=== PATIENT | female | born 1980 ===

== ENCOUNTER 2017-10-31 11:38 | Emergency (ER) | payer OTHER ==
[2017-10-31 11:50] VITALS: BMI 27.3
[2017-10-31 11:53] VITALS: RESP 18
[2017-10-31] MEDS ORDERED: Sodium Chloride 0.9% 1,000 ML IV ONE (12:24)
--- NOTE | 2017-10-31 12:45 | C.PDOC ---
History Of Present Illness 37yo female, comes to ER for evaluation of generalized weakness and bodyaches since yesterday. Patient states yesterday, she also had associated nausea and a subjective fever. She denies any recent travels, known sick contacts, or changes in diet. Patient also denies any chest pain, shortness of breath, cough , throat pain, vomiting, diarrhea, numbness or weakness in her lower extremities. She states she is concerned due to the persistent weakness and bodyaches. 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 History/Exam Limitations: no limitations Onset/Duration Of Symptoms: Persistent Current Symptoms Are (Timing): Still Present Additional History Per: Patient Past Medical History Reviewed: Historical Data, Nursing Documentation, Vital Signs Vital Signs: Last Vital Signs Temp 98 F 10/31/17 15:43 Pulse 68 10/31/17 15:43 Resp 18 10/31/17 15:43 BP 116/78 10/31/17 15:43 Pulse Ox 100 10/31/17 15:43 - Medical History PMH: HTN Surgical History: No Surg Hx Family History: States: No Known Family Hx - Social History Hx Alcohol Use: No Hx Substance Use: No - Immunization History Hx Tetanus Toxoid Vaccination: No Hx Influenza Vaccination: No Hx Pneumococcal Vaccination: No Review Of Systems Except As Marked, All Systems Reviewed And Found Negative. Constitutional: Positive for: Fever (subjective), Weakness, Other (bodyaches) ENT: Negative for: Throat Pain Cardiovascular: Negative for: Chest Pain Respiratory: Negative for: Cough, Shortness of Breath Gastrointestinal: Positive for: Nausea. Negative for: Vomiting, Abdominal Pain Neurological: Negative for: Weakness, Numbness Physical Exam - Physical Exam Appears: Non-toxic, No Acute Distress Skin: Normal Color, Warm, Dry Head: Atraumatic, Normacephalic Eye(s): bilateral: Normal Inspection, EOMI Oral Mucosa: Moist Throat: Normal, No Erythema, No Exudate Neck: Normal ROM, Supple Chest: Symmetrical, No Tenderness Cardiovascular: Rhythm Regular Respiratory: Normal Breath Sounds, No Rales, No Rhonchi, No Wheezing Gastrointestinal/Abdominal: Normal Exam, Soft, No Tenderness, No Guarding, No Rebound Back: Normal Inspection, No CVA Tenderness, No Vertebral Tenderness, No Paraspinal Tenderness Extremity: Normal ROM, No Tenderness, No Pedal Edema, No Calf Tenderness, No Deformity, No Swelling Neurological/Psych: Oriented x3, Normal Speech, Normal Cognition, Normal Motor, Normal Sensation Gait: Steady ED Course And Treatment - Laboratory Results Result Diagrams: 10/31/17 12:45 10/31/17 12:45 O2 Sat by Pulse Oximetry: 99 (RA) Pulse Ox Interpretation: Normal - Other Rad CXR X-Ray: Read By Radiologist Interpretation: FINDINGS: LUNGS: No active pulmonary disease. PLEURA: No significant pleural effusion identified. No pneumothorax apparent. CARDIOVASCULAR: Normal. OSSEOUS STRUCTURES: No significant abnormalities. VISUALIZED UPPER ABDOMEN: Normal. OTHER FINDINGS: None. IMPRESSION: No acute cardiopulmonary disease appreciated. Reevaluation Time: 16:22 Reassessment Condition: Improved Medical Decision Making Medical Decision Making: Plan: -- Labs -- CXR -- Toradol 30mg IV -- IV Fluids -- Urinalysis Disposition Counseled Patient/Family Regarding: Studies Performed, Diagnosis, Need For Followup - Disposition Referrals: [facility] [Outside] at [facility] [Outside] Disposition: HOME/ ROUTINE Disposition Time: 16:23 Condition: IMPROVED Instructions: Muscle and Bone Pain (DC) Forms: [employer] (Tajik), Work Excuse Print Language: YORUBA - Clinical Impression Clinical Impression: Myalgia, Malaise - Scribe Statement The provider has reviewed the documentation as recorded by the Holly Muller Provider Attestation: All medical record entries made by the Holly were at my direction and personally dictated by me. I have reviewed the chart and agree that the record accurately reflects my personal performance of the history, physical exam, medical decision making, and the department course for this patient. I have also personally directed, reviewed, and agree with the discharge instructions and disposition.
[2017-10-31 12:48] LABS: BASO % 1.1 % (0.0-2.0); EOS # 0.1 K/uL (0.0-0.7); EOS % 2.4 % (0.0-4.0); HEMOGLOBIN 13.4 g/dL (11.0-16.0); LYMPH # 2.3 K/uL (1.0-4.3); LYMPH % 60.8 % (20.0-40.0); MEAN CELL VOLUME 94.7 fL (81.0-99.0); MEAN CORPUSCULAR HEMOGLOBIN 32.2 pg (27.0-31.0); MEAN PLATELET VOLUME 8.6 fL (7.2-11.7); MONO # 0.3 K/uL (0.0-0.8); MONO % 6.9 % (0.0-10.0); NEUT # 1.1 K/uL (1.8-7.0); NEUT % 28.8 % (50.0-75.0); NRBC % 0.1 % (0.0-2.0); RBC 4.16 Mil/uL (3.80-5.20); RED CELL DISTRIBUTION WIDTH 12.6 % (11.5-14.5); WHITE BLOOD COUNT 3.7 K/uL (4.8-10.8)
[2017-10-31] MEDS ORDERED: Sodium Chloride 0.9% 1,000 ML ONE (12:48)
[2017-10-31 12:58] LABS: BLOOD UREA NITROGEN 8 mg/dL (7-17); CALCIUM 8.8 mg/dl (8.6-10.4); GFR AFRICAN-AMERICAN > 60; GFR NON-AFRICAN AMERICAN > 60
--- NOTE | 2017-10-31 13:17 | RAD ---
Date of service: 10/31/2017 HISTORY: SOB COMPARISON: No prior. TECHNIQUE: Chest PA and lateral FINDINGS: LUNGS: No active pulmonary disease. PLEURA: No significant pleural effusion identified. No pneumothorax apparent. CARDIOVASCULAR: Normal. OSSEOUS STRUCTURES: No significant abnormalities. VISUALIZED UPPER ABDOMEN: Normal. OTHER FINDINGS: None. IMPRESSION: No acute cardiopulmonary disease appreciated.
--- NOTE | 2017-10-31 15:11 | CARD ---
APPROVED REPORT Date of service: 10/31/2017 EKG Measurement Heart [id number] <Conclusion> Normal sinus rhythm Normal ECG
[2017-10-31] MEDS ORDERED: Iodixanol 320 MG/ML 100 ML BOTTLE IV ONE (15:22)
[2017-10-31 15:37] LABS: SQUAMOUS EPITHIAL 14 /hpf (0-5); URINE BILIRUBIN NEGATIVE (NEGATIVE); URINE BLOOD NEGATIVE (NEGATIVE); URINE CLARITY Clear (Clear); URINE COLOR Yellow (YELLOW); URINE GLUCOSE (UA) NORMAL (Normal); URINE LEUKOCYTE ESTERASE NEG Leu/uL (Negative); URINE PROTEIN NEGATIVE (NEGATIVE); URINE UROBILINOGEN NORMAL mg/dL (0.2-1.0)
[2017-10-31 15:44] VITALS: BP 116/78; PULSE 68; TEMP 98
--- NOTE | 2017-10-31 16:03 | CT ---
Date of service: 10/31/2017 PROCEDURE: CT Chest with contrast (Pulmonary Angiogram) HISTORY: SOB r/o PE COMPARISON: None available. TECHNIQUE: Axial computed tomography images were obtained of the chest in the pulmonary arterial phase of enhancement. Coronal and sagittal reformatted images were created and reviewed. Intravenous contrast dose: 100 mL of Visipaque 320 Radiation dose: Total exam DLP = 343 mGy-cm. This CT exam was performed using one or more of the following dose reduction techniques: Automated exposure control, adjustment of the mA and/or kV according to patient size, and/or use of iterative reconstruction technique. FINDINGS: PULMONARY ARTERIES: Unremarkable. No pulmonary embolism. AORTA: No acute findings. No thoracic aortic aneurysm. LUNGS: Unremarkable. No nodule, mass or pulmonary consolidation. PLEURAL SPACES: Unremarkable. No effusion or pneumothorax. HEART: Unremarkable. No cardiomegaly. No significant pericardial effusion. LYMPH NODES: No lymphadenopathy. BONES, CHEST WALL: Unremarkable. No fracture or destructive lesion OTHER FINDINGS: Some small peripheral subsegmental bilateral pulmonary venous thrombi not excluded/possible. IMPRESSION: No pulmonary arterial emboli. Small peripheral bibasilar subsegmental pulmonary venous thrombi not excluded/possible
[2017-10-31 16:22] VITALS: O2SAT 99
== END 2017-10-31 16:34 | disposition home or self-care (01) ==
LOC: C.ER 11:38
DX: M79.1 Myalgia (principal); R53.81 Other malaise; I10 Essential (primary) hypertension
CPT/HCPCS: 71046; 71275; 80048; 81001; 85025; 85378; 93005; 96361; 96374; 99285; J1885; J7030; Q9967

== ENCOUNTER 2018-02-10 07:49 | Emergency (ER) | payer OTHER ==
[2018-02-10 07:50] VITALS: BMI 27.3
[2018-02-10] MEDS ORDERED: Sodium Chloride 0.9% 1,000 ML IV ONE (08:21)
[2018-02-10] MEDS ORDERED: Albuterol 0.083% Inhal Sol (2.5 mg/3 mL) UD INH STA (08:22)
--- NOTE | 2018-02-10 08:23 | C.PDOC ---
History Of Present Illness 37 years old female with PMHx of asthma presents to ED for complaints of bodyaches, nasal congestion,dry cough, low grade fever that began few days ago. Patient reports, " since last night developed a sever nasal congestion, hard to breath", epigastric pain associated with 2 episodes of non-bilious vomiting. Otherwise, pt denies high fever,lethargy, drooling, headache, dizziness, neck pain, chest pain, wheezing, palpitation, hematemesis, diarrhea, melena, back pain, UTI sx. Ambulate to Ed for evaluation, appears lightly anxious. Time Seen by Provider: 02/10/18 07:57 Chief Complaint (Nursing): Abdominal Pain History Per: Patient History/Exam Limitations: no limitations Onset/Duration Of Symptoms: Days Current Symptoms Are (Timing): Still Present Location Of Pain/Discomfort: Epigastric Radiation Of Pain To:: None Quality Of Discomfort: "Pain" Associated Symptoms: Fever (Low grade). denies: Chills, Nausea, Vomiting, Diarrhea Exacerbating Factors: None Alleviating Factors: None Last Bowel Movement: Today Recent travel outside of the [place]: No Abnormal Vaginal Bleeding: No Past Medical History Reviewed: Historical Data, Nursing Documentation, Vital Signs Vital Signs: Last Vital Signs Temp 98.6 F 02/10/18 07:58 Pulse 74 02/10/18 07:58 Resp 24 02/10/18 07:58 BP Pulse Ox 99 02/10/18 07:58 - Medical History PMH: HTN Family History: States: No Known Family Hx - Social History Hx Alcohol Use: No Hx Substance Use: No - Immunization History Hx Tetanus Toxoid Vaccination: No Hx Influenza Vaccination: No Hx Pneumococcal Vaccination: No Review Of Systems Constitutional: Positive for: Fever (Low grade), Malaise. Negative for: Chills ENT: Positive for: Nose Congestion Respiratory: Positive for: Cough. Negative for: Wheezing Gastrointestinal: Positive for: Abdominal Pain (Epigastric ). Negative for: Nausea, Vomiting, Diarrhea Skin: Negative for: Rash Neurological: Negative for: Weakness, Numbness Physical Exam - Physical Exam Appears: Well, Non-toxic, Other (mild anxious) Skin: Normal Color, Warm, Dry, No Rash Head: Normacephalic Eye(s): bilateral: PERRL Ear(s): Bilateral: Normal Nose: Discharge (Nasal congestion with discharge bilaterally ) Oral Mucosa: Moist, No Drooling Tongue: Normal Appearing Lips: Normal Appearing Throat: No Erythema, No Exudate, No Drooling Neck: Trachea Midline, Supple Chest: Symmetrical, No Tenderness Cardiovascular: No Murmur, No JVD Respiratory: No Decreased Breath Sounds, No Accessory Muscle Use, No Rales, No Rhonchi, No Stridor, No Wheezing Gastrointestinal/Abdominal: Soft, Tenderness (Mild Epigastric ), No Distention, No Guarding, No Rebound Back: No CVA Tenderness Extremity: Normal ROM, No Deformity, No Swelling Extremity: Bilateral: Atraumatic, Normal Color And Temperature, Normal ROM Pulses: Left Radial: Normal, Right Radial: Normal Neurological/Psych: Oriented x3, Normal Speech Gait: Steady ED Course And Treatment - Laboratory Results Result Diagrams: 02/10/18 08:50 02/10/18 08:50 Lab Interpretation: No Acute Changes Urine POC: Negative ECG: Interpreted By Me, Viewed By Me ECG Rhythm: Sinus Rhythm ECG Interpretation: Normal Interpretation Of ECG: SR@60/min, NAD, no acute T wave or ST-T Changes O2 Sat by Pulse Oximetry: 99 (RA) Pulse Ox Interpretation: Normal - Radiology CXR: Interpreted by Me, Viewed By Me CXR Interpretation: Yes: No Acute Disease - Other Rad CXR X-Ray: Viewed By Me, Read By Radiologist Interpretation: Chest x-ray two views. HISTORY: Cough. COMPARISON: 10/31/2017. FINDINGS: No focal infiltrate or effusion. Heart size within normal limits. Impression: No focal infiltrate or effusion. Progress Note: Administered Albuterol nebulizer treatment, IV fluids, Pepcid, Toradol, and Zofran. Ordered CXR, EKG, blood work, urinalysis, and Flu AB Swab. Pt was OBS in ED for 3 hours and reports moderate improvement in sx. On re- eval, pt is afebrile, hemodynamicay stable. Non-toxic, tolerate PO well in ED. PulsEOx. Neck: SUpple, (-) meningeals ign. ENT: No acute findings. Lungs: CTA B/L, BS equal B/L. CVS: (+)S1S2, reg. Abd: Benign, (-) guarding, (-) rebound, (-) localized tenderness. back: (-) CVA tenderness. Neurologicaly inatct. Blood work review and appears without acute abnormalities, no acute leuko cytosis, no evidece of dehydration. CXR- normal study. Pt has clinical findings c/w epigastric pain, N/V, r/o viral illness. Pt advised on course f ds,. ref. to F/U with PMD in 2-3 days for re-eval. return if any new chnages. Disposition Counseled Patient/Family Regarding: Studies Performed, Diagnosis, Need For Followup, Rx Given - Disposition Referrals: [facility] [Outside] Disposition: HOME/ ROUTINE Disposition Time: 09:54 Condition: STABLE Additional Instructions: Encourage fluids Take medication as need as prescribed Follow up with PMD In 2-3 days for re-evaluation. return to ED if any worsening or new changes. Prescriptions: Famotidine [Pepcid] 20 mg PO BID #10 tab Ondansetron ODT [Zofran ODT] 1 odt PO BID PRN #6 odt PRN Reason: Nausea/Vomiting Instructions: Viral Upper Respiratory Infection, Adult (DC), Nausea and Vomiting, Adult (DC) Forms: [employer] (Ghanaian) Print Language: ALBANIAN - Clinical Impression Clinical Impression: Epigastric abdominal pain, Vomiting, Nausea - PA / BENCH SCIENTIST / Resident Statement MD/DO has reviewed & agrees with the documentation as recorded. - Scribe Statement The provider has reviewed the documentation as recorded by the Holly Dill All medical record entries made by the Ericibpako were at my direction and personally dictated by me. I have reviewed the chart and agree that the record accurately reflects my personal performance of the history, physical exam, medical decision making, and the department course for this patient. I have also personally directed, reviewed, and agree with the discharge instructions and dis position.
[2018-02-10 08:53] LABS: BASO # 0.1 K/uL (0.0-0.2); BASO % 1.4 % (0.0-2.0); EOS # 0.3 K/uL (0.0-0.7); EOS % 6.5 % (0.0-4.0); HEMOGLOBIN 13.3 g/dL (11.0-16.0); LYMPH # 2.6 K/uL (1.0-4.3); LYMPH % 53.6 % (20.0-40.0); MEAN CELL VOLUME 93.7 fL (81.0-99.0); MEAN CORPUSCULAR HEMOGLOBIN 32.3 pg (27.0-31.0); MEAN CORPUSCULAR HGB CONC 34.5 g/dL (33.0-37.0); MEAN PLATELET VOLUME 9.8 fL (7.2-11.7); MONO # 0.5 K/uL (0.0-0.8); MONO % 9.9 % (0.0-10.0); NEUT # 1.4 K/uL (1.8-7.0); NEUT % 28.6 % (50.0-75.0); NRBC % 0.1 % (0.0-2.0); RBC 4.12 Mil/uL (3.80-5.20); RED CELL DISTRIBUTION WIDTH 12.5 % (11.5-14.5); WHITE BLOOD COUNT 4.9 K/uL (4.8-10.8)
[2018-02-10 08:58] LABS: SQUAMOUS EPITHIAL 1 /hpf (0-5); URINE BACTERIA RARE (<OCC); URINE BILIRUBIN NEGATIVE (NEGATIVE); URINE BLOOD 3+ (NEGATIVE); URINE CLARITY Clear (Clear); URINE COLOR Yellow (YELLOW); URINE GLUCOSE (UA) NORMAL (Normal); URINE LEUKOCYTE ESTERASE NEG Leu/uL (Negative); URINE PROTEIN NEGATIVE (NEGATIVE); URINE UROBILINOGEN NORMAL mg/dL (0.2-1.0)
[2018-02-10 09:02] LABS: HCG,QUALITATIVE URINE NEGATIVE (NEGATIVE)
[2018-02-10] MEDS ORDERED: Albuterol 0.083% Inhal Sol (2.5 mg/3 mL) UD ONE (09:04)
[2018-02-10 09:10] LABS: ALB/GLOB RATIO 1.4 (1.0-2.1); ALBUMIN 3.9 g/dL (3.5-5.0); ALT/SGPT 39 U/L (9-52); AST/SGOT 32 U/L (14-36); BLOOD UREA NITROGEN 8 mg/dL (7-17); CALCIUM 8.5 mg/dl (8.6-10.4); GFR NON-AFRICAN AMERICAN > 60
--- NOTE | 2018-02-10 10:22 | RAD ---
Chest x-ray two views HISTORY: Cough. COMPARISON: 10/31/2017 FINDINGS: No focal infiltrate or effusion. Heart size within normal limits. Impression: No focal infiltrate or effusion.
[2018-02-10 11:03] VITALS: BP 110/72; PULSE 60; RESP 18; TEMP 99.1
[2018-02-10 18:29] VITALS: O2SAT 99
--- NOTE | 2018-02-12 23:04 | CARD ---
APPROVED REPORT Date of service: 02/10/2018 EKG Measurement Heart [id number] <Conclusion> Normal sinus rhythm Low voltage QRS Nonspecific T wave abnormality Abnormal ECG
== END 2018-02-10 11:02 | disposition home or self-care (01) ==
LOC: C.ER 07:49
DX: R10.13 Epigastric pain (principal); R11.2 Nausea with vomiting, unspecified
CPT/HCPCS: 71046; 80053; 81001; 84703; 85025; 87804; 93005; 96361; 96374; 96375; 99285; J1885; J2405; J7030

== ENCOUNTER 2018-03-06 14:11 | Emergency (ER) | payer OTHER ==
[2018-03-06 14:11] VITALS: BMI 27.3
[2018-03-06 14:46] VITALS: TEMP 98.4; O2SAT 100
[2018-03-06] MEDS ORDERED: Belladonna-Phenobarbital PO STA (15:34)
--- NOTE | 2018-03-06 15:36 | C.PDOC ---
History Of Present Illness 37 y/o female presents to ED with c/o intermittent epigastric abdominal pain for 2 days associated with nausea and diarrhea. Patient states she was seen last month for same and given medication, finished course but now symptoms returned. Patient states pain is worse after eating and denies recent travel, fever, chills, blood in stool, vomiting or any other complaints at this time. Time Seen by Provider: 03/06/18 15:19 Chief Complaint (Nursing): Abdominal Pain History Per: Patient History/Exam Limitations: no limitations Onset/Duration Of Symptoms: Days Current Symptoms Are (Timing): Still Present Past Medical History Reviewed: Historical Data, Nursing Documentation, Vital Signs Vital Signs: Last Vital Signs Temp 98.4 F 03/06/18 14:43 Pulse 83 03/06/18 14:43 Resp 20 03/06/18 14:43 BP 103/65 03/06/18 14:43 Pulse Ox 100 03/06/18 14:43 - Medical History PMH: HTN Surgical History: No Surg Hx Family History: States: No Known Family Hx - Social History Hx Alcohol Use: No Hx Substance Use: No - Immunization History Hx Tetanus Toxoid Vaccination: No Hx Influenza Vaccination: No Hx Pneumococcal Vaccination: No Review Of Systems Constitutional: Negative for: Fever, Chills Gastrointestinal: Positive for: Nausea, Abdominal Pain, Diarrhea. Negative for: Vomiting Genitourinary: Negative for: Dysuria, Hematuria Skin: Negative for: Rash Physical Exam - Physical Exam Appears: Non-toxic, No Acute Distress Skin: Warm, Dry, No Rash Head: Atraumatic, Normacephalic Eye(s): bilateral: Normal Inspection, EOMI Oral Mucosa: Moist Neck: Normal ROM, Supple Chest: Symmetrical Cardiovascular: Rhythm Regular Respiratory: Normal Breath Sounds, No Rales, No Rhonchi, No Wheezing Gastrointestinal/Abdominal: Bowel Sounds, Soft, Tenderness (mild epigastric), No Mass, No Distention, No Guarding, No Rebound Back: No CVA Tenderness Extremity: Bilateral: Atraumatic, Normal Color And Temperature, Normal ROM Neurological/Psych: Oriented x3, Normal Speech ED Course And Treatment O2 Sat by Pulse Oximetry: 100 (RA) Pulse Ox Interpretation: Normal Medical Decision Making Medical Decision Making: Impression: epigastric abdominal pain, chronic Plan: * Oral Pepcid and Progress: Prior record reviewed from 02/10/18 where patient presented for similar symptoms. Patient had lab work and xray done with no acute findings. Patient treated with oral medications. She has no fever and in no acute distress or pain at this time. Abdomen was soft and she is tolerating PO. There is no clinical indication for further workup at this time in ED. I recommend she follow up with GI if symptoms persist. Disposition Counseled Patient/Family Regarding: Diagnosis, Need For Followup, Rx Given - Disposition Referrals: Sarah King MD [Staff Provider] - Disposition: HOME/ ROUTINE Disposition Time: 15:35 Condition: GOOD Additional Instructions: por favor, tome los medicamentos segn lo prescrito 1-2 veces al da o jp se indica seguimiento en la clnica Prescriptions: Bismuth Subsalicylate [Pepto Bismol] 1 tab PO QID 14 Days #56 ctb Lactobacillus Acidophilus [Acidophilus Lactobacilli] 1 each PO DAILY #30 capsule Omeprazole 20 mg PO BID 14 Days #28 capsule. Ranitidine HCl 150 mg PO BID #30 tablet Instructions: Gastritis (DC) Forms: [employer] (Nicaraguan) Print Language: [place] ISLANDER - POA Present On Arrival: None - Clinical Impression Clinical Impression: Abdominal pain - PA / CARGO HANDLER / Resident Statement MD/DO has reviewed & agrees with the documentation as recorded. - Scribe Statement The provider has reviewed the documentation as recorded by the Holly Garcia All medical record entries made by the Holly were at my direction and personally dictated by me. I have reviewed the chart and agree that the record accurately reflects my personal performance of the history, physical exam, [facility] decision making, and the department course for this patient. I have also personally directed, reviewed, and agree with the discharge instructions and disposition.
[2018-03-06] MEDS ORDERED: Belladonna-Phenobarbital ONE (16:03)
[2018-03-06 16:11] VITALS: BP 128/73; PULSE 79; RESP 18
== END 2018-03-06 16:09 | disposition home or self-care (01) ==
LOC: C.ER 14:11
DX: R10.13 Epigastric pain (principal)